=== PATIENT | male | born 1990 | race Caucasian/White ===

== ENCOUNTER 2021-01-26 12:14 | Outpatient (CLI) | payer BC ==
[2021-01-26] MEDS ORDERED: MELA5TAB14 PO (13:07)
[2021-01-26] MEDS ORDERED: ROPI1TAB4 PO (13:07)
[2021-02-12] MEDS ORDERED: OXYC5TAB98 PO (14:41)
== END 2021-01-26 23:59 | disposition home or self-care (01) ==
LOC: STAR 12:14
PROVIDERS: ATTEND Otolaryngology
DX: Z02.9 Encounter for administrative examinations, unspecified (principal)

== ENCOUNTER → 2021-01-30 | Outpatient (CLI) | payer BC ==
[~2021-01-30] MED LIST: MELA5TAB14 PO; ROPI1TAB4 PO
== END | disposition home or self-care (01) ==
LOC: STAR 12:29
PROVIDERS: ATTEND Otolaryngology
DX: Z20.822 Contact with and (suspected) exposure to COVID-19 (principal)
CPT/HCPCS: U0003; U0005

== ENCOUNTER 2021-02-05 05:22 | Day surgery (SDC) | payer BC ==
[~2021-02-05] VITALS: Ht 180.3 cm; Wt 92.9 kg
[2021-02-05 06:12] VITALS: BP 114/79
[2021-02-05] MEDS ORDERED: VALA500T4 PO (06:17)
[2021-02-05] MEDS ORDERED: CHLORHEXIDINE 15 ML UDC PO ONE (06:30)
[2021-02-05] MEDS ORDERED: LACTATED RINGERS 1,000 ML IV SCH (06:30)
[2021-02-05] MEDS ORDERED: SILVER NITRATE STICK TP ONE (06:49)
[2021-02-05] MEDS ORDERED: SENN-190 PO (07:11)
[2021-02-05] MEDS ORDERED: IBUP-1222 PO (07:11)
[2021-02-05] MEDS ORDERED: OXYC5TAB2 PO (07:11)
[2021-02-05] MEDS ORDERED: ACET325T14 PO (07:11)
[2021-02-05] MEDS ORDERED: FENTANYL PF 250 MCG/5ML ONE (07:14)
[2021-02-05] MEDS ORDERED: MIDAZOLAM 1 MG/ML, 2ML ONE (07:14)
[2021-02-05] MEDS ORDERED: LIDOCAINE 1%, 20ML ONE (07:20)
[2021-02-05] MEDS ORDERED: KETOROLAC 30 MG/1 ML ONE (07:20)
[2021-02-05] MEDS ORDERED: FENTANYL PF 100 MCG/2ML IV PRN (07:30)
[2021-02-05] MEDS ORDERED: HYDROmorphone 1 MG/ML, 1ML INJ IVPush PRN (07:30)
[2021-02-05] MEDS ORDERED: ALBUTEROL SULFATE 2.5 MG/3 ML NPPB PRN (07:30)
[2021-02-05] MEDS ORDERED: ACETAMINOPHEN 325 MG TABLET PO PRN (07:30)
[2021-02-05] MEDS ORDERED: LORazepam 2 MG/ML, 1ML IVPush PRN (07:30)
[2021-02-05] MEDS ORDERED: OXYcodone 5 MG/5 ML ORAL.SOL UDC PO PRN (07:30)
[2021-02-05] MEDS ORDERED: MEPERIDINE/PF 25MG/0.5ML IVPush PRN (07:30)
[2021-02-05] MEDS ORDERED: PROMETHAZINE 25 MG/ML, 1ML IVPush PRN (07:30)
[2021-02-05] MEDS ORDERED: LABETALOL 5MG/ML, 20ML IV PRN (07:30)
[2021-02-05] MEDS ORDERED: GLYCOPYRROLATE 0.2MG/1ML, 5ML ONE (07:43)
[2021-02-05] MEDS ORDERED: ROCURONIUM 10MG/ML,5ML ONE (07:43)
[2021-02-05] MEDS ORDERED: PROPOFOL 10 MG/ML, 20ML ONE (07:43)
[2021-02-05] MEDS ORDERED: NEOSTIGMINE 1 MG/ML, 10ML ONE (07:43)
[2021-02-05] MEDS ORDERED: DEXAMETHASONE 4 MG/ML, 1ML ONE (07:43)
[2021-02-05] MEDS ORDERED: LIDOCAINE-MPF 2% ,5ML ONE (07:43)
[2021-02-05] MEDS ORDERED: ONDANSETRON 2MG/ML, 2ML ONE (07:43)
[2021-02-05] MEDS ORDERED: MEPERIDINE/PF 25MG/ML,1ML ONE (08:02)
[2021-02-05] MEDS ORDERED: ACETAMINOPHEN 650 MG/20.3 ML UDC ONE (08:02)
[2021-02-05] MEDS ORDERED: PROMETHAZINE 25 MG/ML, 1ML ONE (08:22)
== END 2021-02-05 09:50 | disposition home or self-care (01) ==
LOC: OUT 05:22
PROVIDERS: ATTEND Otolaryngology
DX: J35.01 Chronic tonsillitis (principal); R06.83 Snoring; Z87.891 Personal history of nicotine dependence; Z79.899 Other long term (current) drug therapy
CPT/HCPCS: 42826; 88304; J1100; J1885; J2175; J2250; J2405; J2550; J2704; J2710; J3010; J7120